=== PATIENT | male | born 1990 | race Caucasian/White ===

== ENCOUNTER 2018-04-19 19:50 | Inpatient (IN) | payer BC ==
[2018-04-19] MEDS ORDERED: DIPHTH/TET/ACEL PERTUSS (ADULT) 0.5 ML VIAL IM* (21:00)
[2018-04-19] MEDS ORDERED: SOD CHLORIDE 0.9% 1,000 ML IV (21:00)
[2018-04-19] MEDS ORDERED: VANCOMYCIN 1.25 GM in SOD CHLORIDE 0.9% 250 ML IVPB (21:00)
[2018-04-19 21:20] LABS: ADD MAN DIFF? NO
[2018-04-19] MEDS: KETOROLAC 15 MG INJ IV (21:20)
[2018-04-19] MEDS: VANCOMYCIN 1 GM (PMX) 250 ML IVPB (21:21)
[2018-04-19] MEDS: SOD CHLORIDE 0.9% 1,000 ML IV (21:22)
[2018-04-19 21:25] LABS: WHITE BLOOD COUNT 4.9 10^3/ul (4.8-10.8)
[2018-04-19 21:25] LABS: BASOPHILS % 0.2 % (0.0-2.0); EOSINOPHILS # 0.1 10^3/ul (0.0-0.5); EOSINOPHILS % 1.8 % (0.0-7.0); HEMATOCRIT 45.9 % (42.0-52.0); HEMOGLOBIN 15.3 g/dl (14.0-18.0); LYMPHOCYTES # 0.9 10^3/ul (0.8-2.9); LYMPHOCYTES % 17.6 % (15.0-51.0); MEAN CORPUSCULAR HEMOGLOBIN 26.9 pg (29.0-33.0); MEAN CORPUSCULAR HGB CONC 33.3 g/dl (32.0-37.0); MEAN CORPUSCULAR VOLUME 80.8 fl (82.0-101.0); MEAN PLATELET VOLUME 11.5 fl (7.4-10.4); MONOCYTE # 0.4 10^3/ul (0.3-0.9); MONOCYTES % 8.2 % (0.0-11.0); NEUTROPHIL # 3.5 10^3/ul (1.6-7.5); NEUTROPHILS % 71.4 % (39.0-77.0); PLATELET COUNT 142 10^3/UL (140-415); RED BLOOD COUNT 5.68 10^6/ul (4.70-6.10); RED CELL DISTRIBUTION WIDTH 13.2 % (11.5-14.5)
[2018-04-19 21:44] LABS: ALANINE AMINOTRANSFERASE 20 IU/L (13-69); ALBUMIN 4.2 g/dl (3.3-4.9); ALBUMIN/GLOBULIN RATIO 1.31; ALKALINE PHOSPHATASE 94 IU/L (42-121); ANION GAP 11 (5-13); ASPARTATE AMINO TRANSFERASE 20 IU/L (15-46); BILIRUBIN,INDIRECT 0.5 mg/dl (0-1.1); BILIRUBIN,TOTAL 0.5 mg/dl (0.2-1.3); BLOOD UREA NITROGEN 21 mg/dl (7-20); CALCIUM 9.9 mg/dl (8.4-10.2); CARBON DIOXIDE 28 mmol/L (21-31); CHLORIDE 102 mmol/L (97-110); CREATININE 0.69 mg/dl (0.61-1.24); Estimated GFR > 60 mL/min (>60); GLUCOSE 93 mg/dl (70-220); POTASSIUM 4.3 mmol/L (3.5-5.1); SODIUM 141 mmol/L (135-144); TOTAL PROTEIN 7.4 g/dl (6.1-8.1)
[2018-04-19] MEDS ORDERED: ACETAMINOPHEN 325 MG TAB PO (23:30)
[2018-04-19] MEDS ORDERED: ONDANSETRON 4 MG INJ IV (23:30)
[2018-04-20] MEDS ORDERED: DOCUSATE SODIUM 100 MG CAP PO
[2018-04-20] MEDS ORDERED: VANCOMYCIN IV PER PHARMACY XX
[2018-04-20] MEDS ORDERED: ONDANSETRON 4 MG INJ IV
[2018-04-20] MEDS ORDERED: NACL 0.9% 3 ML SYG IV
[2018-04-20] MEDS ORDERED: ACETAMINOPHEN 325 MG TAB PO
[2018-04-20] MEDS ORDERED: IBUPROFEN 600 MG TAB PO
[2018-04-20] MEDS ORDERED: morphine 2 MG INJ IV
[2018-04-20] MEDS ORDERED: HYDROCODONE/APAP (5/325) TAB PO ×2
[2018-04-20] MEDS: VANCOMYCIN 1 GM 250 ML IVPB ×3 (04:49→21:26)
[2018-04-20 05:37] LABS: ADD MAN DIFF? NO
[2018-04-20 05:40] LABS: BASOPHILS % 0.2 % (0.0-2.0); EOSINOPHILS # 0.1 10^3/ul (0.0-0.5); EOSINOPHILS % 1.7 % (0.0-7.0); HEMATOCRIT 44.5 % (42.0-52.0); HEMOGLOBIN 14.7 g/dl (14.0-18.0); LYMPHOCYTES # 0.8 10^3/ul (0.8-2.9); LYMPHOCYTES % 17.4 % (15.0-51.0); MEAN CORPUSCULAR HEMOGLOBIN 27.4 pg (29.0-33.0); MEAN CORPUSCULAR VOLUME 82.9 fl (82.0-101.0); MONOCYTE # 0.4 10^3/ul (0.3-0.9); MONOCYTES % 7.9 % (0.0-11.0); NEUTROPHIL # 3.5 10^3/ul (1.6-7.5); NEUTROPHILS % 72.4 % (39.0-77.0); PLATELET COUNT 103 10^3/UL (140-415); RED BLOOD COUNT 5.37 10^6/ul (4.70-6.10); RED CELL DISTRIBUTION WIDTH 13.5 % (11.5-14.5)
[2018-04-20 05:40] LABS: WHITE BLOOD COUNT 4.8 10^3/ul (4.8-10.8)
[2018-04-20 05:58] LABS: HEMOGLOBIN A1C 5.2 % (0-5.9)
[2018-04-20 06:07] LABS: ALANINE AMINOTRANSFERASE 20 IU/L (13-69); ALBUMIN/GLOBULIN RATIO 1.33; ALKALINE PHOSPHATASE 91 IU/L (42-121); ANION GAP 10 (5-13); ASPARTATE AMINO TRANSFERASE 21 IU/L (15-46); BILIRUBIN,INDIRECT 0.4 mg/dl (0-1.1); BILIRUBIN,TOTAL 0.4 mg/dl (0.2-1.3); BLOOD UREA NITROGEN 19 mg/dl (7-20); CALCIUM 9.4 mg/dl (8.4-10.2); CARBON DIOXIDE 27 mmol/L (21-31); CHLORIDE 103 mmol/L (97-110); CHOL/HDL RATIO 2.4 RATIO; CHOLESTEROL 141 mg/dl (100-200); CREATININE 0.53 mg/dl (0.61-1.24); Estimated GFR > 60 mL/min (>60); GLUCOSE 100 mg/dl (70-220); HDL CHOLESTEROL 58 mg/dl (30-63); LDL CHOLESTEROL,CALCULATED 71 mg/dl; MAGNESIUM 1.9 mg/dl (1.7-2.5); POTASSIUM 4.3 mmol/L (3.5-5.1); SODIUM 140 mmol/L (135-144); TRIGLYCERIDES 58 mg/dl (0-149)
[2018-04-20] MEDS: INSULIN ASPART [NOVOLOG] 3 ML PEN SC ×4 (08:00→21:00)
[2018-04-20] MEDS: ENOXAPARIN 30 MG/0.3 ML SYG SC (09:27)
[2018-04-20] MEDS: LINAGLIPTIN 5 MG TABLET PO (09:28)
[2018-04-20] MEDS: ACETYLCYSTEINE 600 MG CAP PO ×2 (10:33→21:30)
[2018-04-20] MEDS: metFORMIN (XR) 500 MG TAB PO ×2 (10:33→17:29)
[2018-04-20] MEDS: ARIPIPRAZOLE 5 MG TAB PO (10:33)
[2018-04-20 21:06] LABS: VANCOMYCIN,TROUGH 10.2 ug/ml (10.0-20.0)
[2018-04-21] MEDS: VANCOMYCIN 1 GM 250 ML IVPB ×3 (05:30→21:25)
[2018-04-21 06:19] LABS: BLOOD UREA NITROGEN 17 mg/dl (7-20)
[2018-04-21 06:19] LABS: CREATININE 0.48 mg/dl (0.61-1.24)
[2018-04-21] MEDS: INSULIN ASPART [NOVOLOG] 3 ML PEN SC ×4 (08:00→21:00)
[2018-04-21] MEDS: ARIPIPRAZOLE 5 MG TAB PO (08:12)
[2018-04-21] MEDS: ACETYLCYSTEINE 600 MG CAP PO ×2 (08:12→21:27)
[2018-04-21] MEDS: LINAGLIPTIN 5 MG TABLET PO (08:12)
[2018-04-21] MEDS: metFORMIN (XR) 500 MG TAB PO ×2 (08:13→18:20)
[2018-04-21] MEDS: ENOXAPARIN 30 MG/0.3 ML SYG SC (08:14)
[2018-04-21] MEDS: METHYLPHENIDATE 36 MG PO (10:22)
[2018-04-21] MEDS ORDERED: LIDOCAINE 1% (MPF) 5 ML VIAL SC (18:00)
[2018-04-21] MEDS ORDERED: MELATONIN 3MG TABLET PO (21:00)
[2018-04-21] MEDS: METHYLPHENIDATE 18 MG PO (21:00)
[2018-04-21] MEDS: MELATONIN 3 MG TABLET PO (21:27)
[2018-04-22] MEDS: VANCOMYCIN 1 GM 250 ML IVPB ×3 (05:05→20:44)
[2018-04-22 05:21] LABS: ADD MAN DIFF? NO
[2018-04-22 05:27] LABS: BASOPHILS % 0.2 % (0.0-2.0); EOSINOPHILS # 0.1 10^3/ul (0.0-0.5); HEMATOCRIT 49.2 % (42.0-52.0); HEMOGLOBIN 16.4 g/dl (14.0-18.0); LYMPHOCYTES # 0.8 10^3/ul (0.8-2.9); LYMPHOCYTES % 15.5 % (15.0-51.0); MEAN CORPUSCULAR HEMOGLOBIN 27.1 pg (29.0-33.0); MEAN CORPUSCULAR HGB CONC 33.3 g/dl (32.0-37.0); MEAN CORPUSCULAR VOLUME 81.3 fl (82.0-101.0); MEAN PLATELET VOLUME 11.7 fl (7.4-10.4); MONOCYTE # 0.2 10^3/ul (0.3-0.9); MONOCYTES % 4.9 % (0.0-11.0); NEUTROPHIL # 3.8 10^3/ul (1.6-7.5); PLATELET COUNT 137 10^3/UL (140-415); RED BLOOD COUNT 6.05 10^6/ul (4.70-6.10); RED CELL DISTRIBUTION WIDTH 13.3 % (11.5-14.5)
[2018-04-22 05:27] LABS: WHITE BLOOD COUNT 4.9 10^3/ul (4.8-10.8)
[2018-04-22] MEDS: INSULIN ASPART [NOVOLOG] 3 ML PEN SC ×4 (08:00→20:50)
[2018-04-22] MEDS: LINAGLIPTIN 5 MG TABLET PO (08:19)
[2018-04-22] MEDS: ACETYLCYSTEINE 600 MG CAP PO ×2 (08:19→20:44)
[2018-04-22] MEDS: ARIPIPRAZOLE 5 MG TAB PO (08:19)
[2018-04-22] MEDS: metFORMIN (XR) 500 MG TAB PO ×2 (08:19→17:32)
[2018-04-22] MEDS: METHYLPHENIDATE 36 MG PO (08:20)
[2018-04-22] MEDS: ENOXAPARIN 30 MG/0.3 ML SYG SC (08:25)
[2018-04-22] MEDS: [UNRECOGNIZED DRUG - REMARK] XX ×2 (09:30→17:30)
[2018-04-22] MEDS: MELATONIN 3 MG TABLET PO (20:44)
[2018-04-23] MEDS: [UNRECOGNIZED DRUG - REMARK] XX ×2 (01:30→17:30)
[2018-04-23 04:52] LABS: BLOOD UREA NITROGEN 18 mg/dl (7-20)
[2018-04-23 04:52] LABS: CREATININE 0.62 mg/dl (0.61-1.24)
[2018-04-23 05:16] LABS: VANCOMYCIN,TROUGH 10.7 ug/ml (10.0-20.0)
[2018-04-23] MEDS: VANCOMYCIN 1 GM 250 ML IVPB ×2 (05:32→13:21)
[2018-04-23] MEDS: INSULIN ASPART [NOVOLOG] 3 ML PEN SC ×4 (08:00→21:00)
[2018-04-23] MEDS: metFORMIN (XR) 500 MG TAB PO ×2 (08:34→18:48)
[2018-04-23] MEDS: ARIPIPRAZOLE 5 MG TAB PO (08:34)
[2018-04-23] MEDS: METHYLPHENIDATE 36 MG PO (08:35)
[2018-04-23] MEDS: LINAGLIPTIN 5 MG TABLET PO (08:35)
[2018-04-23] MEDS: ACETYLCYSTEINE 600 MG CAP PO ×2 (08:35→21:00)
[2018-04-23] MEDS: ENOXAPARIN 30 MG/0.3 ML SYG SC (08:39)
[2018-04-23] MEDS: VANCOMYCIN 1 GM (PMX) 250 ML IVPB (18:47)
[2018-04-23] MEDS: MELATONIN 3 MG TABLET PO (21:00)
[2018-04-24] MEDS ORDERED: VANCOMYCIN 1 GM 250 ML IVPB (04:00)
== END 2018-04-23 21:40 | disposition home health service (06) | DRG 603 ==
LOC: 2NE 23:09 → FTE 19:50
DX: L03.115 Cellulitis of right lower limb (principal); F84.0 Autistic disorder; Q93.88 Other microdeletions; E11.9 Type 2 diabetes mellitus without complications; F90.0 Attention-deficit hyperactivity disorder, predominantly inattentive type; F41.9 Anxiety disorder, unspecified; Z79.4 Long term (current) use of insulin; Z79.84 Long term (current) use of oral hypoglycemic drugs
CPT/HCPCS: 36415; 73590; 80053; 80061; 80202; 82565; 82962; 83036; 83735; 84520; 85025; 93971; 96365; 96366; 96375; 99285-25

== ENCOUNTER 2018-04-27 20:09 | Emergency (ER) | payer BC | END 2018-04-27 22:15 | disposition home or self-care (01) | LOC: E/R 20:09 | DX: T82.898A Other specified complication of vascular prosthetic devices, implants and grafts, initial encounter (principal); F84.0 Autistic disorder; Y71.2 Prosthetic and other implants, materials and accessory cardiovascular devices associated with adverse incidents; Z79.84 Long term (current) use of oral hypoglycemic drugs | CPT/HCPCS: 99282 ==